=== PATIENT | female | born 1980 | race Caucasian/White ===

== ENCOUNTER 2017-07-12 14:42 | Observation (INO) | payer MEDICAID, OTHER ==
[~2017-07-12] VITALS: Ht 142.2 cm; Wt 59.0 kg
== END 2017-07-12 17:07 | disposition home or self-care (01) ==
LOC: L&D 14:42
PROVIDERS: ADMIT Obstetrics & Gynecology; ATTEND Obstetrics & Gynecology
DX: O36.8130 Decreased fetal movements, third trimester, not applicable or unspecified (principal); Z3A.36 36 weeks gestation of pregnancy
CPT/HCPCS: 76815; 76818; 99281; G0378